=== PATIENT | female | born 1935 | race Caucasian/White ===

== ENCOUNTER 2022-01-12 15:27 | Emergency (ER) | payer MEDICARE, SELFPAY ==
--- NOTE | 2022-01-12 15:31 | ED.FALL ---
HPI - Fall General Chief Complaint: Skin/Abscess/Foreign Body Stated Complaint: fall - face hand knee injury Time Seen by Provider: 01/12/22 15:31 Source: patient Mode of arrival: ambulatory Limitations: no limitations History of Present Illness HPI Narrative: Ms. Santiago is a an 86-year-old female patient presenting to the clinic today with complaints of a ground-level fall injuring her face, left hand, and right knee that occurred approximately 45 minutes prior to arrival. She reports she missed a step when she was stepping off her deck and landed on the [place]. She reports that she has lip swelling, right mild knee pain, and left palm pain. She has swelling and pain to the lower lip with a small avulsion of skin and laceration to the left mid lower lip. Related Data Home Medications Medication Instructions Recorded Confirmed levothyroxine 25 mcg tablet 25 mcg PO DAILY 01/12/22 01/12/22 lisinopril 20 1 tablet PO DAILY 01/12/22 01/12/22 mg-hydrochlorothiazide 25 mg tablet metoprolol succinate 25 mg 25 mg PO DAILY 01/12/22 01/12/22 tablet,extended release 24 hr rosuvastatin 5 mg tablet 5 mg PO DAILY 01/12/22 01/12/22 Allergies Allergy/AdvReac Type Severity Reaction Status Date / Time No Known Allergies Allergy Unverified 01/12/22 15:44 Review of Systems Review of Systems: Pertinent positives per HPI. Patient denies any fever, chills, rash, headache, visual changes, dizziness, cough, runny nose, sore throat, shortness of breath, chest pain, palpitations, nausea, vomiting, diarrhea, constipation, abdominal pain, or any urinary issues. PMFSH Comments At the time of my signature, I reviewed and agree with the nursing past medical, surgical, social, and family history. There is no relevant family history pertinent to the patient complaint. Exam Narrative: General: Well-developed, well nourished, in no apparent distress Head: Normocephalic, small abrasion to the left cheek, lower lip swelling/bruised with avulsion of skin to the mid lower lip and small half centimeter laceration to the lower mid lip. Cardio: Regular rate and rhythm, s1 and s2 normal, no murmur appreciated. Resp: Clear to auscultation bilaterally, no rhonchi, rales, wheezing or rubs. Musculoskeletal: No deformity, mild tender to palpation over the bruised area of the left palm and right medial superior knee, no pain with range of motion and she has grossly normal range of motion, muscle strength strong and equal, peripheral pulse strong, no edema, no cyanosis, normal gait and station Course Course Emergency Course: Portions of this record may have been created with voice recognition software. Level of Care: Express Care Visit Vital Signs Vital signs: Vital Signs Temperature 38.1 C H 01/12/22 15:35 Pulse Rate 70 01/12/22 15:35 Respiratory Rate 16 01/12/22 15:35 Blood Pressure 168/59 H 01/12/22 15:35 Pulse Oximetry 99 01/12/22 15:35 Oxygen Delivery Room Air 01/12/22 15:35 Temperature 38.1 C H 01/12/22 15:35 Pulse Rate 70 01/12/22 15:35 Respiratory Rate 16 01/12/22 15:35 Blood Pressure 168/59 H 01/12/22 15:35 Pulse Oximetry 99 01/12/22 15:35 Oxygen Delivery Room Air 01/12/22 15:35 Vital signs reviewed MDM - Fall MDM Narrative Medical decision making narrative: At the time of assessment patient is resting comfortably on the exam table. She has lip swelling/contusion as well as a contusion to the right knee and left palm. She declines any x-rays in the clinic today. She denies allowing me to do any suturing of the small half centimeter laceration to the lower lip. Ice pack given to the patient. Neuro assessment is normal and she is conscious alert oriented x4. I suspect the patient has contusions and bruises to the left palm and right knee as well as skin avulsion to the lower lip with laceration. Tetanus shot was given in the clinic. Supportive measures were discussed with patient and red flags sy
[2022-01-12 15:35] VITALS: BP 168/59; PULSE 70; RESP 16; TEMP 38.1; O2SAT 99
[2022-01-12] MEDS: TETANUS,DIPHTHERIA,AC PERTUSSIS ADULT (0.5 ML) BOOSTRIX IM (16:01)
== END 2022-01-12 16:08 | disposition home or self-care (01) ==
PROVIDERS: Emergency Provider Nurse Practitioner Family; PCP Family Medicine
DX: S01.511A Laceration without foreign body of lip, initial encounter (principal); W19.XXXA Unspecified fall, initial encounter; S60.222A Contusion of left hand, initial encounter; S80.01XA Contusion of right knee, initial encounter; Z23 Encounter for immunization; E78.00 Pure hypercholesterolemia, unspecified; I10 Essential (primary) hypertension; E03.9 Hypothyroidism, unspecified
CPT/HCPCS: 90471; 90715; 99202; G0463

== ENCOUNTER 2023-05-05 15:30 | Emergency (ER) | payer MEDICARE, SELFPAY ==
[2023-05-05 15:40] VITALS: BP 170/70; PULSE 73; RESP 20; TEMP 36.3; O2SAT 100
--- NOTE | 2023-05-05 16:45 | ED.URI ---
HPI - URI/Sore Throat General Chief Complaint: Upper Respiratory Infection Stated Complaint: Cough Time Seen by Provider: 05/05/23 16:30 Source: patient, RN notes reviewed and old records reviewed Mode of arrival: ambulatory Limitations: no limitations History of Present Illness HPI Narrative: 88 year old female who presents to [facility] care with complaints of having a cough for one week duration denies any sinus congestion or drainage. Patient reports that she has used steam and also an expectorant without improvement. Patient reports that she has had some chills and sweats denies any body aches, Patient reports that she did home COVID test at home 3 days ago which was negative. Patient reports that she has been COVID vaccinated and had flu shot last year but not yet this season. MD elicited complaint: cough (and congestion) Pertinent past history: other (bronchitis, and sinus problems) Onset (ago): week(s) (1) Consistency: constant Able to tolerate fluids by mouth: Yes Treatments prior to arrival: other (Muccinex,) Related Data Home Medications Medication Instructions Recorded Confirmed levothyroxine 25 mcg tablet 25 mcg PO DAILY 01/12/22 01/12/22 lisinopril 20 1 tablet PO DAILY 01/12/22 01/12/22 mg-hydrochlorothiazide 25 mg tablet metoprolol succinate 25 mg 25 mg PO DAILY 01/12/22 01/12/22 tablet,extended release 24 hr rosuvastatin 5 mg tablet 5 mg PO DAILY 01/12/22 01/12/22 levothyroxine 25 mcg tablet mcg 05/05/23 Allergies Allergy/AdvReac Type Severity Reaction Status Date / Time No Known Allergies Allergy Unverified 01/12/22 15:44 Review of Systems Review of Systems: CONSTITUTIONAL: Denies malaise, some chills, sweats, unknown if fever. EYES: Denies visual changes, redness, or discharge. ENT: Reports no rhinorrhea, congestion, sinus pain, otalgia or sore throat. CARDIOVASCULAR: Denies chest pain, palpitations, or edema. RESPIRATORY: Reports cough.? Denies dyspnea. GASTROINTESTINAL: Denies abdominal pain, nausea, vomiting, diarrhea SKIN: Denies rash or itching. MUSCULOSKELETAL: Denies myalgia. NEUROLOGIC: Denies headache. All systems reviewed & are unremarkable except as noted in HPI and below PMFSH Past Medical History Medical History Atrial fibrillation Breast cancer Ear infection GERD (gastroesophageal reflux disease) History of sinus problem Hyperlipidemia Hypertension Hypothyroidism Surgical History Surgical History (Updated 05/06/23 @ 22:04 by Jayla Mai NP) H/O: hysterectomy History of cholecystectomy History of left mastectomy Family History Family History Father Heart disease Sibling Cirrhosis Social History Social History (Updated 05/06/23 @ 22:03 by Jayla Mai NP) Smoking status: Never smoker Alcohol intake: current Alcohol use details: rare social Substance use type: does not use Gender identity (if verbalized by the patient): Female Comments At time of signature, agree with nursing past medical, surgical, social and family history. There is no relevant family history pertinent to the presenting complaint Exam Narrative: GENERAL: Well-appearing, well-nourished, and in no acute distress. HEAD: Normocephalic EYES: PERRLA, conjunctivae clear ENT: Nares clear, turbinates edematous and erythematous, clear discharge. Mucous membranes moist. TM pearly reina with dull light reflex bilaterally; no tragal tenderness. Oropharynx erythematous without lesions. Tonsils not enlarged and without exudate, no drooling, no hoarseness, no trismus, uvula midline.post nasal drainage NECK: Supple. No lymphadenopathy CHEST: Clear to auscultation, breath sounds equal. No wheezing, rhonchi, rales, or stridor. No respiratory distress, speaks in full sentences.cough SAO2 100% on room air HEART: Regular rate and rhythm. No murmur he
== END 2023-05-05 17:08 | disposition home or self-care (01) ==
PROVIDERS: Emergency Provider Registered Nurse
DX: J06.9 Acute upper respiratory infection, unspecified (principal); I48.91 Unspecified atrial fibrillation; K21.9 Gastro-esophageal reflux disease without esophagitis; E78.5 Hyperlipidemia, unspecified; I10 Essential (primary) hypertension; E03.9 Hypothyroidism, unspecified; Z85.3 Personal history of malignant neoplasm of breast; Z90.12 Acquired absence of left breast and nipple
CPT/HCPCS: 99213; G0463